=== PATIENT | male | born 1975 | race Hispanic/Latino ===

== ENCOUNTER 2024-08-15 15:43 | Emergency (ER) | payer BC ==
--- NOTE | 2024-08-15 16:41 | RAD REPORT ---
EXAMINATION: CT ABDOMEN AND PELVIS WITH CONTRAST CLINICAL INDICATION: ABD PAIN TECHNIQUE: CT abdomen and pelvis was performed, after the administration of IV contrast, as per [facility] protocol. Axial, sagittal and coronal reconstructions were obtained. One or more of the following dose reduction techniques were used: Automated exposure control, adjustment of the mA and k V according to patient size, and iterative reconstruction. Unless otherwise specified, incidental findings do not require dedicated imaging follow-up. COMPARISON: No prior exam. FINDINGS: LOWER CHEST: The visualized lung bases are clear. LIVER: Mild fatty liver is present. No focal lesion or biliary dilatation is seen. Grossly unremark able gallbladder. SPLEEN: Normal size. No focal lesion. PANCREAS: No mass, ductal dilation, or alexa-pancreatic fluid. ADRENALS: Normal; no mass. KIDNEYS: Normal size and contour. No hydronephrosis. Bilateral renal lesions which are either benign in appearance or too small to accurately characterize but statistically benign. GASTROINTESTINAL TRACT: No evidence of free air, significant intra-abdominal free fluid, bowel obstru ction or abscess. APPENDIX: Normal appendix. LYMPH NODES: No lymphadenopathy. MUSCULOSKELETAL: No acute or suspicious osseous abnormality. ADDITIONAL FINDINGS: Small fat-containing umbilical hernia. IMPRESSION: No acute or concerning abnormalities seen in the abdomen or pelvis. Diffuse fatty liver.
[2024-08-15 16:53] LABS: Absolute Lymphocytes (CBC) 0.6 K/uL (0.7-4.9); Absolute Monocytes 0.5 K/uL (0.1-1.3); Absolute Neutrophil 4.9 K/uL (1.8-8.0); Basophils % 0.1 % (0-1.3); Eosinophils % 0.3 % (0-4.4); Hematocrit 47.4 % (39.6-49.0); Hemoglobin 16.6 g/dL (13.6-17.9); Lymphocytes % 9.5 % (15.3-44.8); MCH 29.6 pg (27.0-35.0); MCHC 35.1 g/dL (32.0-36.0); MCV 84.5 fL (80-100); MPV 8.4 fL (7.6-11.3); Monocytes % 8.8 % (3.3-12.3); Neutrophils % 81.3 % (41.7-73.7); Platelets 175 thou/uL (152-406); RBC Red Blood Cell Count 5.61 M/uL (4.33-5.43); Red Cell Distribution Width 14.1 % (12.1-15.2)
[2024-08-15] MEDS ORDERED: NA CHLORIDE 0.9% 1,000 ML ONE (16:58)
[2024-08-15 17:07] LABS: Albumin 3.9 g/dL (3.4-5.0); Albumin/Globulin Ratio 0.9 (1.1-1.8); Anion Gap 9.9 mEq/L (5.0-15.0); Bilirubin Total 1.5 mg/dL (0.2-1.0); Globulin 4.4 g/dL (2.3-3.5); Potassium 3.9 mEq/L (3.5-5.1); Protein, Total 8.3 g/dL (6.4-8.2)
--- NOTE | 2024-08-15 18:02 | EDPHYS ---
Physician Documentation [facility] Name: Naif Mensah Age: 49 yrs Sex: Male : 1975 Arrival Date: 08/15/2024 Time: 15:43 Bed 26 Private MD: ED Physician Pedro Vaughn HPI: 08/15 17:56 This 49 yrs old Male presents to ER via Ambulatory with complaints of kb Abdominal Pain. 17:56 Pt is a 49 year old male who presents for abd cramping that has been intermittent since kb this morning. States he has had this pain in the past, but it normally only happens once and then goes away. Was seen by GI in the past, had upper and lower GI done that were normal. Denies n/v/d, fever. . Historical: - Allergies: 16:04 No Known Allergies; ap3 - PMHx: 16:04 None; ap3 - Immunization history:: Client reports receiving the 2nd dose of the Covid vaccine. - Infectious Disease History:: Denies. - Social history:: Smoking status: Patient denies any tobacco usage or history of. ROS: 17:52 Constitutional: As per HPI kb Exam: 17:52 Constitutional: This is a well developed, well nourished patient who is awake, alert, kb and in no acute distress. Head/Face: Normocephalic, atraumatic. ENT: Moist Mucous membranes Cardiovascular: Regular rate Respiratory: Respirations even and unlabored. No increased work of breathing. Talking in full sentences Abdomen/GI: Soft, non-tender. No distention Skin: Warm, dry with normal turgor. Normal color. MS/ Extremity: Pulses equal, no cyanosis. Neurovascular intact. Full, normal range of motion. Neuro: Awake and alert, GCS 15, oriented to person, place, time, and situation. Vital Signs: 16:01 BP 161 / 105; Pulse 111; Resp 18; Temp 99.2; Pulse Ox 100% ; Weight 120.2 kg; Height 6 ap3 ft. 1 in. ; 17:51 BP 162 / 108; Pulse 100; Resp 16; Pulse Ox 99% on R/A; jb4 16:01 Body Mass Index 34.96 (120.20 kg, 185.42 cm) ap3 MDM: 15:49 Medical Screening Exam initiated kb 17:59 Differential diagnosis: cholecystitis, Cholelithiasis, gastritis, gastroesophageal kb reflux disease, non-specific abd pain, pancreatitis, Peptic Ulcer Disease. Data reviewed: vital signs, nurses notes. 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 08/15 16:05 Order name: CBC with Diff; Complete Time: 17:06 kb 08/15 16:05 Order name: CMP; Complete Time: 17:09 kb 08/15 16:05 Order name: Lipase; Complete Time: 17:09 kb 08/15 17:22 Order name: CREATININE WHOLE BLOOD; Complete Time: 17:33 EDMS 08/15 16:05 Order name: CT Abd/Pelvis - IV Contrast Only; Complete Time: 16:55 kb 08/15 16:05 Order name: IV Saline Lock; Complete Time: 16:45 kb 08/15 16:05 Order name: Labs collected and sent; Complete Time: 16:45 kb Administered Medications: 17:12 Drug: NS 0.9% IV 1000 ml IV at 1000 ml once; to be given as a bolus over 60 minutes jb4 Route: IV; Rate: 1000 ml; Site: left antecubital; 18:15 Follow up: Response: No adverse reaction; IV Status: Completed infusion; IV Intake: jb4 1000ml 18:15 Drug: Dicyclomine PO 20 mg PO once Route: PO; jb4 18:15 Follow up: Response: Medication administered at discharge. jb4 Disposition: 18:20 Co-signature as Attending Physician, Pedro Vaughn MD I reviewed the patient's care rn provided by the Advanced Practice Provider and agree with the diagnosis and treatment plan. Disposition Summary: 08/15/24 18:01 Discharge Ordered Notes: Location: Home Condition: Stable kb Diagnosis - Abdominal pain, unspecified kb Followup: kb - With: Emergency Department - When: As needed - Reason: Worsening of condition Followup: kb - With: Private Physician - When: 2 - 3 days - Reason: Recheck today's complaints, Continuance of care, Re-evaluation by your physician Discharge Instructions: - Discharge Summary Sheet kb - Abdominal Pain, Adult, [id number] kb Forms: - Medication Reconciliation Form kb - Antibiotic Education kb - Prescription Opioid Use kb - Patient Portal Instructions kb - Leadership Thank You Letter kb Prescriptions: - dicyclomine 20 mg Oral tablet - take 1 tablet ORAL route 4 times per day As needed; 20 tablet; Refills: 0, kb Product Selection Permitted Signatures: Dispatcher [employer] EDMS Neda Shelton, ADMINISTRATIVE RESOURCES ASSOCIATE-C ADMINISTRATIVE RESOURCES ASSOCIATE-Ckb Pedro Vaughn MD MD rn Bryson, James RN RN jb4 Elidia Enciso RN RN ap3 Corrections: (The following items were deleted from the chart) 16:06 16:06 Abdomen Pelvis W [id number] ordered. EDOR EDOR
--- NOTE | 2024-08-15 18:02 | ER ---
Nurse's Notes [facility] Name: Naif Mensah Age: 49 yrs Sex: Male : 1975 Arrival Date: 08/15/2024 Time: 15:43 Bed 26 Private MD: Diagnosis: Abdominal pain, unspecified Presentation: 08/15 16:01 Chief complaint: Patient states: he has been having abdominal pain that "is so bad it ap3 makes me grit my teeth". patient reports the pain is intermittent. patient currently states he has no pain. Coronavirus screen: At this time, the client does not indicate any symptoms associated with coronavirus-19. Ebola Screen: No symptoms or risks identified at this time. Initial Sepsis Screen: Does the patient meet any 2 criteria? HR > 90 bpm. Does the patient have a suspected source of infection? No. Patient's initial sepsis screen is negative. Risk Assessment: Do you want to hurt yourself or someone else? Patient reports no desire to harm self or others. Onset of symptoms was August 14, 2024. 16:01 Method Of Arrival: Ambulatory ap3 16:01 Acuity: VIKKI 3 ap3 Triage Assessment: 16:04 General: Appears in no apparent distress. Behavior is calm, cooperative, appropriate ap3 for age. Pain: Complains of pain in abdomen Pain currently is 0 out of 10 on a pain scale. at worst was 8 out of 10 on a pain scale. Quality of pain is described as crampy, Is intermittent. Neuro: Level of Consciousness is awake, alert, obeys commands, Oriented to person, place, time, situation, Appropriate for age Gait is steady. Cardiovascular: Patient's skin is warm and dry. Respiratory: Airway is patent Respiratory effort is even, unlabored, Respiratory pattern is regular, symmetrical. GI: Reports upper abdominal pain, cramping, diarrhea. Historical: - Allergies: 16:04 No Known Allergies; ap3 - PMHx: 16:04 None; ap3 - Immunization history:: Client reports receiving the 2nd dose of the Covid vaccine. - Infectious Disease History:: Denies. - Social history:: Smoking status: Patient denies any tobacco usage or history of. Screenin:05 [facility] ED Fall Risk Assessment (Adult) History of falling in the last 3 months, ap3 including since admission No falls in past 3 months (0 pts) Confusion or Disorientation No (0 pts) Intoxicated or Sedated No (0 pts) Impaired Gait No (0 pts) Mobility Assist Device Used No (0 pt) Altered Elimination No (0 pt) Score/Fall Risk Level 0 - 2 = Low Risk Oriented to surroundings, Maintained a safe environment, Educated pt \\T\\ family on fall prevention, incl call for assistance when getting out of bed, Assessed \\T\\ reinforced patient's understanding of fall precautions, Hourly rounding (assess needs \\T\\ fall precautionary measures) done, Used ambulatory aids as needed (educated on \\T\\ assisted with). Abuse screen: Denies threats or abuse. Nutritional screening: No deficits noted. Tuberculosis screening: No symptoms or risk factors identified. Assessment: 16:30 General: Appears in no apparent distress. comfortable, Behavior is calm, cooperative, jb4 appropriate for age. Pain: Complains of pain in abdomen Pain does not radiate. Pain currently is 2 out of 10 on a pain scale. at worst was 10 out of 10 on a pain scale. Is intermittent. Neuro: Level of Consciousness is awake, alert, obeys commands, Oriented to person, place, time, situation. Cardiovascular: Patient's skin is warm and dry. Respiratory: Airway is patent Respiratory effort is even, unlabored, Respiratory pattern is regular, symmetrical. Derm: Skin is intact, Skin is pink, warm \\T\\ dry. Musculoskeletal: Circulation, motion, and sensation intact. Range of motion: intact in all extremities. 17:51 Reassessment: Patient appears in no apparent distress at this time. Patient and/or jb4 family updated on plan of care and expected duration. Pain level reassessed. Patient is alert, oriented x 3, equal unlabored respirations, skin warm/dry/pink. Vital Signs: 16:01 BP 161 / 105; Pulse 111; Resp 18; Temp 99.2; Pulse Ox 100% ; Weight 120.2 kg; Height 6 ap3 ft. 1 in. ; 17:51 BP 162 / 108; Pulse 100; Resp 16; Pulse Ox 99% on R/A; jb4 16:01 Body Mass Index 34.96 (120.20 kg, 185.42 cm) ap3 ED Course: 15:44 Patient arrived in ED. im 15:49 N[facility] Shelton [facility]C [facility] kb 15:49 Pedro Vaughn MD is Attending Physician. kb 16:04 Triage completed. ap3 16:06 Arm band placed on right wrist. ap3 16:33 CT Abd/Pelvis - IV Contrast Only In Process Unspecified. EDMS 16:44 Initial lab(s) drawn, sent to lab. Inserted saline lock: 22 gauge in left antecubital ap3 area, using aseptic technique. Blood collected. Flushed with 10 mL NS. 17:46 Finn Del Real, RN is Primary Nurse. jb4 18:15 Patient has correct armband on for positive identification. Bed in low position. Call jb4 light in reach. Side rails up X 1. Provided Education on: discharge instructions.. 18:15 No provider procedures requiring assistance completed. IV discontinued, intact, jb4 bleeding controlled, No redness/swelling at site. Pressure dressing applied. Administered Medications: 17:12 Drug: NS 0.9% IV 1000 ml IV at 1000 ml once; to be given as a bolus over 60 minutes jb4 Route: IV; Rate: 1000 ml; Site: left antecubital; 18:15 Follow up: Response: No adverse reaction; IV Status: Completed infusion; IV Intake: jb4 1000ml 18:15 Drug: Dicyclomine PO 20 mg PO once Route: PO; jb4 18:15 Follow up: Response: Medication administered at discharge. jb4 Medication: 18:15 VIS not applicable for this client. jb4 Intake: 18:15 IV: 1000ml; Total: 1000ml. jb4 Outcome: 18:01 Discharge ordered by . kb 18:15 Discharged to home ambulatory, with family, jb4 18:15 Condition: stable 18:15 Discharge instructions given to patient, Instructed on discharge instructions, follow up and referral plans. medication usage, Demonstrated understanding of instructions, follow-up care, medications, Prescriptions given X 1, 18:16 Patient left the ED. jb4 Signatures: Dispatcher [employer] EDWY Neda Shelton, VP PATIENT-C VP PATIENT-CkFinn Looney, RN BARBARA jb4 Elidia Enciso RN RN ap3 Lynsey Coates
[2024-08-15] MEDS ORDERED: DICYCLOMINE HCL 10 MG CAP ONE (18:07)
[2024-08-15 18:20] VITALS: TEMP 99.2
[2024-08-15 18:21] VITALS: BP 162/108; O2SAT 99
== END 2024-08-15 18:16 | disposition home or self-care (01) ==
LOC: ER 15:43
DX: R10.9 Unspecified abdominal pain (principal)
CPT/HCPCS: 85025; 36415; 82565; 83690; 80053; 74177; 96360; 99284; Q9967; J7030